=== PATIENT | female | born 1985 | race Caucasian/White ===

== ENCOUNTER 2023-04-23 16:00 | Outpatient (RCR) | payer BC, SELFPAY | END 2023-06-05 11:41 | disposition home or self-care (01) | PROVIDERS: Visit Provider Pediatrics | DX: M25.551 Pain in right hip (principal); M79.18 Myalgia, other site; M53.3 Sacrococcygeal disorders, not elsewhere classified; M25.39 Other instability, other specified joint; R29.898 Other symptoms and signs involving the musculoskeletal system; Z51.89 Encounter for other specified aftercare | CPT/HCPCS: 97110; 97140; 97162 ==